=== PATIENT | female | born 1975 | race African-American/Black ===

== ENCOUNTER 2024-02-23 14:24 | Outpatient (CLI) | payer BC | END 2024-02-23 14:25 | disposition home or self-care (01) | LOC: CSHLAB 14:24 | PROVIDERS: ATTEND Obstetrics & Gynecology | DX: Z01.818 Encounter for other preprocedural examination (principal); D25.9 Leiomyoma of uterus, unspecified | CPT/HCPCS: 80048; 84703; 85027; 86850; 86900; 86901; 93005; 93010 ==